=== PATIENT | male | born 1990 | race African-American/Black ===

== ENCOUNTER 2019-06-17 13:59 | Emergency (ER) | payer OTHER, SELFPAY ==
[2019-06-17] MEDS ORDERED: Adacel (T-DAP) 0.5 ML SYRINGE ONE (14:26)
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
[2019-06-17] MEDS ORDERED: Lidocaine 1% w/Epinephrine 1:100K 20 ML VIAL ONE (15:09)
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
[2019-06-17] MEDS ORDERED: Bacitracin 1 PK ONE (16:01)
== END 2019-06-17 16:30 | disposition home or self-care (01) ==
LOC: ERS 13:59
DX: S02.0XXB Fracture of vault of skull, initial encounter for open fracture (principal); S02.121 Fracture of orbital roof, right side; S06.2X1A Diffuse traumatic brain injury with loss of consciousness of 30 minutes or less, initial encounter; S05.41XA Penetrating wound of orbit with or without foreign body, right eye, initial encounter; F17.210 Nicotine dependence, cigarettes, uncomplicated; Z23 Encounter for immunization; W22.8XXA Striking against or struck by other objects, initial encounter
CPT/HCPCS: 12013; 70450; 72125; 90471; 90715